=== PATIENT | male | born 1980 | race Two or more races ===

== ENCOUNTER → 2025-01-31 | Outpatient (CLI) | payer OTHER ==
[2025-01-31 13:14] LABS: Hemoglobin 18.7 g/dL (13.5-17.5)
[2025-01-31 13:17] LABS: Hematocrit 54.4 % (41.0-53.0); Mean Corpuscular Hemoglobin 30.8 pg (28.0-32.0); Mean Corpuscular Volume 89.3 fL (80.0-100.0); Nucleated Red Blood Cells % 0.2 %
[2025-01-31 13:35] LABS: Urine Protein, UAD 1+ (Negative)
[2025-01-31 13:45] LABS: Prostate Specific Antigen 0.36 ng/mL (0.0-4.0)
[2025-01-31 13:48] LABS: Alanine Aminotransferase 33 U/L (7-40); Albumin 4.4 g/dL (3.2-4.8); Alkaline Phosphatase 97 U/L (46-116); Anion Gap 9 (5-15); BUN/Creatinine Ratio 8.6 (10.0-20.0); Bilirubin, Total 0.9 mg/dL (0.2-1.0); Calcium 9.6 mg/dL (8.7-10.4); Carbon Dioxide 29 mmol/L (20-31); Chloride 102 mmol/L (98-107); Cholesterol 197 mg/dL (< 200); Glucose 104 mg/dL (74-106); HDL Cholesterol 47 mg/dL (40-59); Sodium 140 mmol/L (136-145); Total Protein 7.3 g/dL (5.7-8.2); Triglycerides 118 mg/dL (< 150)
[2025-01-31 13:49] LABS: Blood Urea Nitrogen 9 mg/dL (9-23); Potassium 5.1 mmol/L (3.5-5.1)
[2025-01-31 18:32] LABS: Hepatitis A Total Antibody Negative (Negative); Hepatitis B Surface Antigen Negative (Negative); Hepatitis C Antibody Negative (Negative)
== END | disposition home or self-care (01) ==
LOC: LAB 12:38
PROVIDERS: ATTEND Nurse Practitioner Family
DX: I10 Essential (primary) hypertension (principal); E78.5 Hyperlipidemia, unspecified; E55.9 Vitamin D deficiency, unspecified; Z11.3 Encounter for screening for infections with a predominantly sexual mode of transmission; F10.10 Alcohol abuse, uncomplicated; Z12.11 Encounter for screening for malignant neoplasm of colon; Z12.5 Encounter for screening for malignant neoplasm of prostate
CPT/HCPCS: 36415; 80053; 80061; 81001; 82306; 82607; 83036; 84153; 84443; 85025; 86703; 86704; 86706; 86708; 86780; 86803; 87340